=== PATIENT | male | born 1980 | race Caucasian/White ===

== ENCOUNTER 2019-09-27 08:03 | Outpatient (CLI) | payer OTHER, SELFPAY ==
--- NOTE | ~2019-09-27 | CT_ITS ---
EXAMINATION: CTA chest PE protocol EXAM DATE: 09/27/2019 08:46 INDICATION: Extensive pulmonary emboli in June. TECHNIQUE: Spiral CTA of the chest (pulmonary arteries) was performed with 100 cc Omnipaque 350 intr avenous contrast injection. Images were acquired during the pulmonary arterial phase. Coronal maxi mum intensity projection 3D-reconstructions were created by the technologist on dedicated workstation . Axial, coronal and sagittal reformatted images were reviewed. The dose-length product (DLP) for t his examination was 986.79 mGy-cm. The exposure was tailored according to patient size (auto mA exp osure control), and iterative reconstruction (ASIR) was used as additional dose reduction technique. Comparison is made to prior examination from 06/28/2019. FINDINGS: There are no pulmonary emboli in the 1st through 3rd order (central and interlobar) pulmon ave arteries. Some loss of attenuation in the left basilar segmental pulmonary arteries due to respi ratory motion, but no intraluminal filling defects suspected. No thoracic aortic dissection. The l ungs are clear. There are no pleural or pericardial effusions. Tracheobronchial tree is patent. There is no mediastinal, hilar or axillary lymphadenopathy. There is no pneumothorax. Heart norm al in size. No evidence of coronary arterial calcification. Upper abdomen is unremarkable. The b ones are unremarkable. Compared to previous examination, there is been interval resolution of the previously seen extensive pulmonary emboli, and the left basilar atelectasis. IMPRESSION: 1. Unremarkable CT pulmonary exam. Reviewed, dictated and finalized at location B.
--- NOTE | ~2019-09-27 | US_ITS ---
EXAMINATION: US venous doppler [facility] EXAM DATE: 09/27/2019 09:00 INDICATION: DVT follow-up. TECHNIQUE: Multiple grayscale, color flow and Doppler images of the left lower extremity deep venous system obtained and reviewed. Comparison is made to prior examination from 06/29/2019. FINDINGS: LEFT SIDE Common femoral: -------- Normal. Profunda femoral: ------- Normal. Femoral: Normal. Popliteal: Normal. Posterior tibial: --------- Normal. Peroneal: Normal. Gastrocnemius: Not visualized. Soleus: Not visualized. Greater saphenous: ----- Normal. Lesser saphenous: ------ Not visualized. Interval recanalization of previously seen left popliteal posterior tibial and peroneal DVT. IMPRESSION: No residual left-sided thrombus. Reviewed, dictated and finalized at location B.
== END 2019-09-27 08:04 | disposition home or self-care (01) ==
LOC: ANHIMG 08:09
PROVIDERS: Visit Provider Internal Medicine Hematology & Oncology
DX: I82.4Y2 Acute embolism and thrombosis of unspecified deep veins of left proximal lower extremity (principal)
CPT/HCPCS: 71275; 93971; Q9967

== ENCOUNTER 2020-01-31 08:28 | Outpatient (CLI) | payer OTHER, SELFPAY ==
--- NOTE | 2020-02-02 17:30 | SLEEP_ITS ---
Home sleep test. DATE OF STUDY: 01/31/2020 REASON FOR THE STUDY: Hypersomnia, nonrestorative sleep. HISTORY: The patient is a 39-year-old man, 64 inches tall, weighing 400 pounds with a body mass index of 48.6. For years, he has been waking up feeling very tired, not refreshed. He has difficulty falling asleep and sometimes it takes hours to fall asleep. He rolls over and turns throughout the night. On weekends, he sleeps until 11 or 12 noon. He has no family members with history of sleep-disordered breathing. He has self-medicated with melatonin and sleep aids. He constantly snores and it is frequently loud enough that others complain about it. He occasionally has trouble sleeping with a cold. He rarely wakes up gasping for breath at night. He occasionally has breathing problems at night observed by others and occasionally sweats excessively at night. He rarely notices his heart pounding or beating irregularly at night. He rarely falls asleep during the day, never involuntarily, or with physical effort. He does not have loss of muscle tone with strong emotion. He occasionally has daytime difficulties due to excessive sleepiness. He rarely feels paralyzed on waking or falling asleep. He occasionally has vivid dreamlike scenes upon awakening or falling asleep. He is never afraid to go to sleep. He frequently remembers his dreams, frequently has racing thoughts. He does not feel sad, depressed, and rarely feels anxious. He rarely has muscular tension. He occasionally notices parts of his body jerking. He never kicks at night or has crawly achy feelings in his legs. He never is awakened by leg pain at night or has morning jaw pain. He never grinds his teeth at night. He rarely is bothered by pain during the day. He has never awakened by pain at night. He rarely wakes up feeling stiff in the morning, occasionally with sore achy muscles, rarely with pain in the neck and spine. He has fatigue, takes sedatives, has insomnia and has concentration difficulties. He goes to bed between 10:00 and 11:00 p.m., falling asleep around midnight normally, taking 1-2 hours to fall asleep, typically waking 1 to 2 times at night. During that time, he will go to the bathroom, sit up and stretch. He wakes in the morning at 07:30 to 08:00 a.m. Weekends defer, as he goes to bed between 01:00 and 02:00 a.m. and he wakes between 10:00 a.m. and 12:00 noon. He works in IT sales. He occasionally has daytime difficulties with work due to excessive sleepiness. He takes naps on the weekends only. A short nap is not refreshing. He is usually drowsy in the morning for 1-2 hours. MEDICAL COMORBIDITIES: History of a massive pulmonary embolism with multi-subsegmental involvement and residual clot in the left leg after a prolonged flight, had a DVT. Borderline hyperlipidemia. Insomnia. MEDICATIONS: 1. Melatonin 10 mg at night. 2. Baby aspirin 5 mg. HABITS: Never smoked tobacco. Caffeine, 1-2 beverages a day. No alcohol. DESCRIPTION OF THE STUDY: On the [place] Sleepiness Scale, the score is 6. This was conducted as an unattended type 3 portable home sleep test using 4 channel monitoring including respiratory effort channel, snoring channel, oxygen saturation channel, and heart rate channel. The study was scored using CMS guidelines. Duration was 7 hours 22 minutes. The apnea-hypopnea index is 20, oxygen desaturation index is 20, there were 5 apneas. There were all centrals, 145 hypopneas and 146 desaturations spending 10 minutes/2% of the study below 88%. Minimum pulse was 43, maximum pulse was 105. IMPRESSION: This home sleep test shows evidence of at least moderate sleep-disordered breathing G47.33 with an AHI of 20, 5 apneas, which were all central and 145 hypopneas, likely
== END 2020-01-31 08:29 | disposition home or self-care (01) ==
LOC: ANHCSM 08:28
PROVIDERS: Visit Provider Internal Medicine Critical Care Medicine
DX: G47.33 Obstructive sleep apnea (adult) (pediatric) (principal); Z68.42 Body mass index [BMI] 45.0-49.9, adult; E78.5 Hyperlipidemia, unspecified; Z86.718 Personal history of other venous thrombosis and embolism
CPT/HCPCS: 95806